=== PATIENT | female | born 1985 | race Asian ===

== ENCOUNTER 2022-12-20 03:05 | Emergency (ER) | payer OTHER ==
[~2022-12-20] VITALS: Ht 170.2 cm; Wt 99.8 kg
[2022-12-20 03:10] VITALS: BP 148/108; TEMP 98.6
[2022-12-20 03:49] LABS: PLATELET COUNT 292 K/uL (152-353)
[2022-12-20 04:12] LABS: POTASSIUM 3.1 mmol/L (3.6-5.2)
== END 2022-12-20 04:30 | disposition left against medical advice (07) ==
LOC: ED 03:05
PROVIDERS: Emergency Medicine
DX: R10.84 Generalized abdominal pain (principal); Z87.442 Personal history of urinary calculi; Z53.29 Procedure and treatment not carried out because of patient's decision for other reasons
CPT/HCPCS: 36415; 80048; 80307; 81000; 85027; 96374; 96375; 99284; J1170; J2405